=== PATIENT | female | born 1995 | race Caucasian/White ===

== ENCOUNTER 2021-06-02 20:53 | Emergency (ER) | payer OTHER ==
--- OUTSIDE RECORDS SUMMARY | 2021-06-02 20:56 | XMS REPORT | Continuity of Care Document ---
:1995 Author Organization [facility] t Address [address] [place] [address] Care Team Providers Name Role Phone Unavailable Unavailable Unavailable Problems This patient has no known problems. Allergies, Adverse Reactions, Alerts This patient has no known allergies or adverse reactions. Medications This patient has no known medications. Procedures This patient has no known procedures. Encounters Start End Encounter Admission Attending Care Care Encounter Source Date/Time Date/Time Type Type Clinicians Facility Department ID 2021-05-05 Outpatient [facility] [id number] [facility] [address] 14:38:48 [facility] 2021-05-20 2021-05-20 ambulatory [facility] [id number] [facility] [address] 00:00:00 00:00:00 [facility] 2021-04-30 2021-04-30 ambulatory [facility] [id number] [facility] [address] 00:00:00 00:00:00 [facility] Results Test Description Test Time Test Comments Results Result Comments Source THYROID II PROFILE (TU,T4,FTI,TSH) 2021-04-06 06:04:50 Test Item Value Reference Range Interpretation Comme nts T-UPTAKE (test code = 2817) 36.1 % 24.3-39.0 THYROX. BIND. CAPAC. (test 0.9 0.8-1.3 NOTE: THYROXINE code = 10206) BINDING CAPACI TY IS INVERSELY RELATED TO T-UP TAKE,DECREASED WITH HYPERTHYRO IDISM AND LOW THYROID BINDING GLOBULIN (TBG),INCREASED IN HYPOTHYROIDISM OR WITH HIGH TBG. T4 (THYROXINE) (test code = 7.3 UG/DL 4.5-10.5 2818) CORRECTED T4 (FTI) (test 8.1 UG/DL 4.2-11.6 code = 2820) TSH, THIRD GENERATION (test 1.300 UIU/ML 0.400-4.100 UNLESS OTHERWISE code = 2821) INDICATED, ALL TESTING PERFORMED [facility], [facility]. [address] [place] [address] LABORATORY DIRE CTOR: MARILIN LAWTON M.D. CLIA NUMBER [id number] CAP ACCREDITATION N O. [id number] COMPREHENSIVE METABOLIC [id number] 04:09:31 Test Item Value Reference Range Interpretation Comments GLUCOSE (test code = 137 MG/DL 70-99 H 2216) BUN (test code = 11 MG/DL 6-20 2207) CREATININE (test 0.74 MG/DL 0.60-1.30 EFFECTIVE code = 2214) 03/22/2021, [facility] HAS IMPLEMENTED THE NKF-ASN RECOMME NDED KD-EPI EGF R REFIT CALCULATI ON THAT DOES NOT INCLUDE A COEFFICIENT FOR RACE. FOR MORE INFORMATION, SE E ANNOUNCEMENT [email or web address] eGFR (2020 CKD-EPI) 116 >60 (test code = 19135) ML/MIN/1.73 CALC BUN/CREAT (test 15 RATIO 6-28 code = 2235) SODIUM (test code = 137 MEQ/L 394-208 5601) POTASSIUM (test code 4.9 MEQ/L 3.5-5.4 = 2228) CHLORIDE (test code 101 MEQ/L 95-107 = 2215) CARBON DIOXIDE (test 24 MEQ/L 19-31 code = 2206) CALCIUM (test code = 10.5 MG/DL 8.5-10.5 2208) PROTEIN, TOTAL (test 7.3 G/DL 6.1-8.3 code = 2229) ALBUMIN (test code = 4.7 G/DL 3.5-5.2 2200) CALC GLOBULIN (test 2.6 G/DL 1.9-3.7 code = 2240) CALC A/G RATIO (test 1.8 RATIO 1.0-2.6 code = 2234) BILIRUBIN, TOTAL 0.2 MG/DL See_Comment [Automated message] (test code = 2207) The syste m which generated this result transmit john reference range : <=1.2. The refe rence range was not u sed to interpret th is result as normal/abnormal . ALKALINE PHOSPHATASE 53 U/L 40-115 (test code = 2204) AST (test code = 21 U/L 9-40 2217) ALT (test code = 23 U/L 5-40 2218) LIPID [id number] 04:09:31 Test Item Value Reference Range Interpretation Comments CHOLESTEROL (test 245 MG/DL <200 H code = 2210) TRIGLYCERIDES (test 161 MG/DL <150 H code = 2232) HDL CHOLESTEROL (test 46 MG/DL >39 code = 2220) CALC LDL CHOL (test 168 MG/DL <100 H NOTE: C ALCULATED LDL code = 2237) IS BASED ON JORGE-SLOAN METHOD WHICHINCLUDES ADJUSTABLE TRIGLYCERIDE:VL DL CHOLESTEROL RAT IO.THIS FACTOR VARIES B Y MEASURED TRIGLY CERIDE AND NON-HDLCHOL ESTEROL CONCENTRATIONS WITH INCREASED CALCU LATED LDL SEENIN HIGH ER TRIGLYCERIDE OR LOWER NON-HDL SPECIME NS. FOR MOREINFORMATION , SEE CLIENT ANNOUNCE MENT AT [email or web address] RISK RATIO LDL/HDL 3.65 RATIO <3.22 H (test code = 2238) HEMOGLOBIN [id number] 02:50:34 Test Item Value Reference Range Interpretation Comments HEMOGLOBIN A1c (test 6.9 % 4.2-5.6 H YEMENI DIABETES code = 70877) ASSOCIATION IDELINES FOR HGB A1C: PREDIABETES/INC REASED RISK . . . . . . . 5.7 -6.4% DIAGNOSIS OF D IABETES . . . . . . . . . > =6.5% WITH CONFIRM ATION OR APPROPRIATE SYM PTOMS NOTE: ASSAY MAY BE AFFECTED BY HEMOGLOBINOP ATHIES (SICKLE KRISTI L ANEMIA, S-C DISEASE, OTHERS ) OR ARTIFICIALLY LO WERED BY DECREASED RED C ELL SURVIVAL (HEMOLYTIC ANEM IAS, BLOOD LOSS, ETC.) . CONSIDER ALTERNATE TESTI NG OR LABORATORY CONS ULTATION. CBC W/AUTO DIFF WITH [id number] 02:12:43 Test Item Value Reference Range Interpretation Comments WBC (test code = 10.6 K/UL 3.5-11.0 1001) RBC (test code = 4.79 M/UL 3.80-5.40 1002) HEMOGLOBIN (test code 13.8 G/DL 11.5-15.5 = 1003) HEMATOCRIT (test code 40.0 % 34.0-45.0 = 1004) MCV (test code = 83.5 fL 80.0-99.0 1005) MCH (test code = 28.8 PG 25.0-33.0 1006) MCHC (test code = 34.5 G/DL 31.0-36.0 1007) RDW (test code = 14.1 % 11.5-15.0 1038) NEUTROPHILS (test 62.3 % NOTE: EFF ECTIVE code = 1008) 03/01/2021, REFERENCE INTER VALS AND FLAGGING FORRELATIVE (%) WBC DIFFERENTIAL WI LL BE ELIMINATED REDUNDANT TOABS OLUTE COUNTS.SEE [email or web address] te LYMPHOCYTES (test 29.3 % code = 1010) MONOCYTES (test code 4.9 % = 1011) EOSINOPHILS (test 2.7 % code = 1012) BASOPHILS (test code 0.5 % = 1013) IMMATURE GRANYLOCYTES 0.3 % (test code = 1036) NUCLEATED RBCS (test 0.0 /100 See_Comment [Autom ated message] code = 1065) WBC'S The system [employer] generated this result transmit john reference range : 0.0. The refere nce range was not u sed to interpret th is result as normal/abnormal . PLATELET COUNT (test 342 K/UL 130-400 code = 1015) ABSOLUTE NEUTROPHILS 6.58 K/UL 1.50-7.50 (test code = 1066) ABSOLUTE LYMPHOCYTES 3.09 K/UL 1.00-4.00 (test code = 1067) ABSOLUTE MONOCYTES 0.52 K/UL 0.20-1.00 (test code = 1068) ABSOLUTE EOSINOPHILS 0.29 K/UL 0.00-0.50 (test code = 1040) ABSOLUTE BASOPHILS 0.05 K/UL 0.00-0.20 (test code = 1069) ABS IMMATURE 0.03 K/UL 0.00-0.10 GRANULOCYTES (test code = 1020) ABS NUCLEATED RBCS 0.00 K/UL 0.00-0.11 (test code = 15089)
[2021-06-02] MEDS ORDERED: ONDANSETRON 4 MG/2 ML VIAL ONE (21:58)
[2021-06-02] MEDS ORDERED: NA CHLORIDE 0.9% 1,000 ML ONE (21:58)
[2021-06-02] MEDS ORDERED: MORPHINE 4 MG/ML SYR ONE (21:58)
[2021-06-02 22:34] LABS: Absolute Lymphocytes (CBC) 2.8 K/uL (0.7-4.9); Hematocrit 36.6 % (36.0-45.0); Lymphocytes % 29.5 % (15.3-44.8); MPV 8.5 fL (7.6-11.3); RBC Red Blood Cell Count 4.19 M/uL (3.86-4.86)
[2021-06-02 22:38] LABS: BUN Blood Urea Nitrogen 7 mg/dL (7-18); Bicarbonate 27 mmol/L (21-32); Glucose Level 149 mg/dL (74-106); Sodium Level 138 mmol/L (136-145)
[2021-06-02 23:08] LABS: Urine RBC <5 /HPF (NONE SEEN)
[2021-06-02 23:09] LABS: Urine Bacteria <20 /HPF (<20)
[2021-06-02 23:09] LABS: Urine Blood Negative (Negative); Urine Glucose Negative (Negative); Urine Protein Trace (Negative)
[2021-06-03] MEDS ORDERED: MEPERIDINE HCL 25 MG/ML SYR ONE (00:15)
[2021-06-03] MEDS ORDERED: dexAMETHasone 4 MG/ML VIAL ONE (00:15)
--- NOTE | 2021-06-03 00:50 | EDPHYS ---
Physician Documentation [facility] Name: Monie Bacon Age: 25 yrs Sex: Female : 1995 Arrival Date: 06/02/2021 Time: 20:56 Bed 8 Private MD: ED Physician Yfn Pires HPI: 06/02 22:36 This 25 yrs old Female presents to ER via Ambulatory with complaints of Headache, Neck rn Pain, >24Hrs Old. 22:36 The patient complains of pain to the forehead. The patient describes the headache as rn aching. Onset: The symptoms/episode began/occurred yesterday. Associated signs and symptoms: Pertinent negatives: altered mental status, fever, neck stiffness, rash, vision changes, vision loss, vomiting, vertigo. Severity of symptoms: At its worst the pain was moderate, in the emergency department the pain is unchanged. Headache History: Denies prior headaches. The symptoms are alleviated by nothing. the symptoms are aggravated by nothing. The patient has not experienced similar symptoms in the past. The patient has not recently seen a physician. Pt reports headache that began last night, no trauma, no fever, no focal neuro complaints. Reports has von Willebrand disease but has never had serious bleeding. Denies hx of headaches, so when excedrin migraine not helping, it prompted her to come in for eval. Reports also that recently had issues obtaining her prescription medication and has not taken her medications regularly for last few days. Also reports chronically elevated HR, takes propranolol for it and also has not been taking it as prescribed. . ANIMAL COP: 21:14 LMP N/A - Irregular menses ll3 Historical: - Allergies: 21:14 topiramate; ll3 - Home Meds: 21:14 metformin 1,000 mg oral tab 2 times per day [Active]; lithium carbonate 450 mg Oral ll3 TbER 2 times per day [Active]; BuSpar 15 mg Oral tab 2 times per day [Active]; amiloride-hydrochlorothiazide 200 mg oral tab nightly [Active]; valsartan 80 mg oral tab once daily [Active]; propranolol-hydrochlorothiazide 10 mg oral three times a day [Active]; pregabalin 300 mg Oral cap 2 times per day [Active]; - PMHx: 21:14 vonwildbrandt clotting disorder; Rheumatoid arthritis; PCOS; Bipolar disorder; ADHD; ll3 Hypertensive disorder; Diabetes mellitus; Hypercholesterolemia; - PSHx: 21:14 None; ll3 - Immunization history:: Client reports receiving the 2nd dose of the Covid vaccine. - Social history:: Smoking status: Patient denies any tobacco usage or history of. - Family history:: not pertinent. - Hospitalizations: : No recent hospitalization is reported. ROS: 22:36 Constitutional: Negative for fever, chills, and weight loss, Eyes: Negative for injury, rn pain, redness, and discharge, Neck: Negative for injury, and swelling, Cardiovascular: Negative for chest pain, palpitations, and edema, Respiratory: Negative for shortness of breath, cough, wheezing, and pleuritic chest pain, Abdomen/GI: Negative for abdominal pain, vomiting, diarrhea, and constipation, Back: Negative for injury and pain, : Negative for injury, bleeding, discharge, and swelling, MS/Extremity: Negative for injury and deformity, Skin: Negative for injury, rash, and discoloration, Neuro: Negative for numbness, tingling, and seizure. Exam: 22:36 Constitutional: Overweight female, no acute distress. Head/Face: Normocephalic, rn atraumatic. Eyes: Pupils equal round and reactive to light, extra-ocular motions intact. Lids and lashes normal. Conjunctiva and sclera are non-icteric and not injected. Cornea within normal limits. Periorbital areas with no swelling, redness, or edema. Neck: Trachea midline, no masses palpated, and no cervical lymphadenopathy. Supple, full range of motion without nuchal rigidity, or vertebral point tenderness. No Meningismus. Cardiovascular: Regular rate and rhythm. No pulse deficits. Respiratory: No increased work of breathing, no retractions or nasal flaring. Abdomen/GI: Soft, non-tender Skin: Warm, dry MS/ Extremity: Pulses equal, no cyanosis. Neuro: Awake and alert, GCS 15, oriented to person, place, time, and situation. Cranial nerves II-XII grossly intact. Motor strength 5/5 in all extremities. Sensory grossly intact. Cerebellar exam normal. Vital Signs: 21:08 BP 153 / 97; Pulse 106; Resp 18; Temp 98.2(TE); Pulse Ox 99% on R/A; Weight 151.95 kg ll3 (R); Height 5 ft. 3 in. (160.02 cm) (R); Pain 8/10; 21:43 BP 147 / 109; Pulse 111; Resp 16; Pulse Ox 99% on R/A; st1 22:00 BP 139 / 77; Pulse 95; Resp 16; Pulse Ox 96% on R/A; st1 06/03 00:14 BP 151 / 90; Pulse 103; Resp 22 S; Pulse Ox 97% on R/A; as6 00:57 BP 148 / 83; Pulse 99; Resp 20 S; Pulse Ox 97% on R/A; as6 06/02 21:08 Body Mass Index 59.34 (151.95 kg, 160.02 cm) ll3 Dixie Coma Score: 00:01 Eye Response: spontaneous(4). Verbal Response: oriented(5). Motor Response: obeys rn commands(6). Total: 15. MDM: 06/02 21:30 Patient medically screened. rn 06/03 00:01 Differential diagnosis: cluster headache, hypertensive headache, intracerebral rn hemorrhage, migraine, neoplasm, tension headache, vasomotor headache. Data reviewed: vital signs, nurses notes, lab test result(s), radiologic studies, CT scan, and as a result, I will discharge patient. Counseling: I had a detailed discussion with the patient and/or guardian regarding: the historical points, exam findings, and any diagnostic results supporting the discharge/admit diagnosis, lab results, radiology results, the need for outpatient follow up, to return to the emergency department if symptoms worsen or persist or if there are any questions or concerns that arise at home. Special discussion: I discussed with the patient/guardian in detail that at this point there is no indication for admission to the hospital. It is understood, however, that if the symptoms persist or worsen the patient needs to return immediately for re-evaluation. Based on the history and exam findings, there is no indication for further emergent testing or inpatient evaluation. I discussed with the patient/guardian the need to see the neurologist for further evaluation of the symptoms. I discussed with the patient/guardian the need to see the primary care provider for further evaluation of the symptoms. ED course: CT head and neck angio neg for acute findings. No bleeding. Stable vitals. Patient states improvement of pain level to 6/10 from 8/10. Will medicate again with pain medication and add steroids for migraine headache. Could be originating from neck/nerve given happened after carrying heavy object. . 06/02 21:44 Order name: CBC with Diff; Complete Time: 22:54 rn 06/02 21:44 Order name: Basic Metabolic Panel; Complete Time: 22:54 rn 06/02 21:44 Order name: Urine Microscopic Only; Complete Time: 23:09 rn 06/02 23:09 Order name: Urine Culture EDMS 06/02 23:10 Order name: Urine Dipstick-Ancillary; Complete Time: 23:49 EDMS 06/02 23:11 Order name: Urine --Ancillary (enter results) mw2 06/02 21:32 Order name: CT Head Brain wo Cont rn 06/02 21:32 Order name: CT Head Angio rn 06/02 21:32 Order name: CT Neck Angio rn 06/02 23:12 Order name: Urine --Ancillary; Complete Time: 23:49 EDMS 06/02 21:44 Order name: IV Start; Complete Time: 22:03 rn 06/02 21:44 Order name: Urine Dipstick-Ancillary (obtain specimen); Complete Time: 22:43 rn 06/02 21:44 Order name: Urine Test (obtain specimen); Complete Time: 22:43 rn Administered Medications: 06/02 22:03 Drug: morphine 4 mg Route: IVP; Site: right antecubital; 06/03 00:56 Follow up: Response: No adverse reaction; RASS: Alert and Calm (0) as06/02 22:03 Drug: Zofran (Ondansetron) 4 mg Route: IVP; Site: right antecubital; 06/03 00:56 Follow up: Response: No adverse reaction 06/02 22:04 Drug: NS 0.9% 1000 ml Route: IV; Rate: 1000 ml; Site: right antecubital; 06/03 00:56 Follow up: Response: No adverse reaction; IV Status: Completed infusion; IV Intake: as6 1000ml 00:18 Drug: Decadron - Dexamethasone 10 mg Route: IVP; Site: right antecubital; as6 00:56 Follow up: Response: No adverse reaction as 00:18 Drug: Demerol (meperidine) 12.5 mg Route: IVP; Site: right antecubital; as6 00:57 Follow up: Response: No adverse reaction; RASS: Alert and Calm (0) as6 Disposition Summary: 06/03/21 00:49 Discharge Ordered Location: Home rn Problem: new rn Symptoms: have improved rn Condition: Stable rn Diagnosis - Headache rn Followup: rn - With: Stewart Vergara MD - When: As needed - Reason: Recheck today's complaints, Re-evaluation by your physician Discharge Instructions: - Discharge Summary Sheet rn - General Headache Without Cause rn Forms: - Medication Reconciliation Form rn - Thank You Letter rn - Antibiotic music internship - Prescription Opioid Use rn Prescriptions: - Medrol (Miguelito) 4 mg Oral Tablets, Dose Pack - take 1 tablet by ORAL route as directed - follow package instructions; 1 rn packet; Refills: 0, Product Selection Permitted Signatures: Dispatcher [employer] Yfn Mera MD MD rn Slawson, Ashby, RN RN as6 Rehana Eisenberg, RN RN ll3 Krystal Martinez, RN RN st1
--- NOTE | 2021-06-03 00:50 | ER ---
Nurse's Notes [facility] Name: Monie Bacon Age: 25 yrs Sex: Female : 1995 Arrival Date: 06/02/2021 Time: 20:56 Bed 8 Private MD: Diagnosis: Headache Presentation: 06/02 21:08 Chief complaint: Patient states: States having a horrible H/A and neck pain, Stated ll3 neck pain started a few days ago after carrying a 5 gallon jug of water and the H/A started around 11 PM last night. Coronavirus screen: At this time, the client does not indicate any symptoms associated with coronavirus-19. Ebola Screen: No symptoms or risks identified at this time. Initial Sepsis Screen: Does the patient meet any 2 criteria? No. Patient's initial sepsis screen is negative. Does the patient have a suspected source of infection? No. Patient's initial sepsis screen is negative. Risk Assessment: Do you want to hurt yourself or someone else? Patient reports no desire to harm self or others. Onset of symptoms was June 01, 2021. 21:08 Method Of Arrival: Ambulatory ll3 21:08 Acuity: MARIA 3 ll3 Triage Assessment: 21:14 Headache History: Denies prior headaches. General: Appears uncomfortable, Behavior is ll3 calm, cooperative. Pain: Complains of pain in right sternocleidomastoid, H/A Pain currently is 8 out of 10 on a pain scale. Pain: Pain began 1 day ago. Also complains of nausea, sleeplessness. Neuro: Level of Consciousness is awake, alert, obeys commands, Oriented to person, place, time, situation, Reports headache occipital area, that is the "worst ever", Right eye. Respiratory: Respiratory effort is even, unlabored, Respiratory pattern is regular, symmetrical. Derm: Skin is pink, warm \\T\\ dry. 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 LMP N/A - Irregular menses ll3 Historical: - Allergies: 21:14 topiramate; ll3 - Home Meds: 21:14 metformin 1,000 mg oral tab 2 times per day [Active]; lithium carbonate 450 mg Oral ll3 TbER 2 times per day [Active]; BuSpar 15 mg Oral tab 2 times per day [Active]; amiloride-hydrochlorothiazide 200 mg oral tab nightly [Active]; valsartan 80 mg oral tab once daily [Active]; propranolol-hydrochlorothiazide 10 mg oral three times a day [Active]; pregabalin 300 mg Oral cap 2 times per day [Active]; - PMHx: 21:14 vonwildbrandt clotting disorder; Rheumatoid arthritis; PCOS; Bipolar disorder; ADHD; ll3 Hypertensive disorder; Diabetes mellitus; Hypercholesterolemia; - PSHx: 21:14 None; ll3 - Immunization history:: Client reports receiving the 2nd dose of the Covid vaccine. - Social history:: Smoking status: Patient denies any tobacco usage or history of. - Family history:: not pertinent. - Hospitalizations: : No recent hospitalization is reported. Screenin:36 Abuse screen: Denies threats or abuse. Nutritional screening: No deficits noted. st1 Tuberculosis screening: No symptoms or risk factors identified. Fall Risk None identified. No fall in past 12 months (0 pts). No secondary diagnosis (0 pts). IV access (20 points). Ambulatory Aid- None/Bed Rest/Nurse Assist (0 pts). Gait- Normal/Bed Rest/Wheelchair (0 pts) Mental Status- Oriented to own ability (0 pts). Total Lou Fall Scale indicates No Risk (0-24 pts). Assessment: 21:44 General: Appears in no apparent distress. comfortable, Behavior is calm, cooperative. st1 Pain: Complains of pain in Head and neck Pain radiates to Neck Pain currently is 9 out of 10 on a pain scale. Respiratory: No deficits noted. Musculoskeletal: No deficits noted. 06/03 00:14 Pain: Pain currently is 6 out of 10 on a pain scale. as6 Vital Signs: 06/02 21:08 BP 153 / 97; Pulse 106; Resp 18; Temp 98.2(TE); Pulse Ox 99% on R/A; Weight 151.95 kg ll3 (R); Height 5 ft. 3 in. (160.02 cm) (R); Pain 8/10; 21:43 BP 147 / 109; Pulse 111; Resp 16; Pulse Ox 99% on R/A; st1 22:00 BP 139 / 77; Pulse 95; Resp 16; Pulse Ox 96% on R/A; st1 06/03 00:14 BP 151 / 90; Pulse 103; Resp 22 S; Pulse Ox 97% on R/A; as6 00:57 BP 148 / 83; Pulse 99; Resp 20 S; Pulse Ox 97% on R/A; as6 06/02 21:08 Body Mass Index 59.34 (151.95 kg, 160.02 cm) ll3 Da Coma Score: 00:01 Eye Response: spontaneous(4). Verbal Response: oriented(5). Motor Response: obeys rn commands(6). Total: 15. ED Course: 06/02 20:56 Patient arrived in ED. es 21:14 Triage completed. ll3 21:14 Arm band placed on left wrist. ll3 21:30 Yfn Pires MD is Attending Physician. rn 21:44 Patient has correct armband on for positive identification. Bed in low position. Call st1 light in reach. Side rails up X 1. Adult w/ patient. Pulse ox on. NIBP on. Verbal reassurance given. 21:52 Waldo Lorenzo, ZULMA is Primary Nurse. as6 22:00 Inserted saline lock: 20 gauge in right antecubital area, using aseptic technique. st1 22:03 Basic Metabolic Panel Sent. st1 22:03 CBC with Diff Sent. st1 22:43 Urine Microscopic Only Sent. st1 23:13 CT Head Brain wo Cont In Process Unspecified. EDMS 23:13 CT Head Angio In Process Unspecified. EDMS 23:13 CT Neck Angio In Process Unspecified. EDMS 06/03 00:49 Stewart Vergara MD is Referral Physician. rn 00:50 Urine --Ancillary (enter results) Sent. st1 00:50 Urine Culture Sent. st1 00:55 No provider procedures requiring assistance completed. as6 00:55 No provider procedures requiring assistance completed. IV discontinued, intact, st1 bleeding controlled, No redness/swelling at site. Pressure dressing applied. Administered Medications: 06/02 22:03 Drug: morphine 4 mg Route: IVP; Site: right antecubital; st1 06/03 00:56 Follow up: Response: No adverse reaction; RASS: Alert and Calm (0) as6 06/02 22:03 Drug: Zofran (Ondansetron) 4 mg Route: IVP; Site: right antecubital; st1 06/03 00:56 Follow up: Response: No adverse reaction as6 06/02 22:04 Drug: NS 0.9% 1000 ml Route: IV; Rate: 1000 ml; Site: right antecubital; st1 06/03 00:56 Follow up: Response: No adverse reaction; IV Status: Completed infusion; IV Intake: as6 1000ml 00:18 Drug: Decadron - Dexamethasone 10 mg Route: IVP; Site: right antecubital; as6 00:56 Follow up: Response: No adverse reaction as6 00:18 Drug: Demerol (meperidine) 12.5 mg Route: IVP; Site: right antecubital; as6 00:57 Follow up: Response: No adverse reaction; RASS: Alert and Calm (0) as6 Intake: 00:56 IV: 1000ml; Total: 1000ml. as6 Outcome: 00:49 Discharge ordered by . rn 00:56 Discharged to home ambulatory, with family. st1 00:56 Condition: good 00:56 Discharge instructions given to patient, family, Instructed on discharge instructions, follow up and referral plans. medication usage, Demonstrated understanding of instructions, follow-up care, medications, Prescriptions given X 1. 01:00 Patient left the ED. as6 Addendum: 06/06/2021 17:21 Addendum: Culture Results: Positive urine culture. Patient was not prescribed s s antibiotics at discharge. Report given to YAMILE for further evaluation and then to nurse practitioner adult for follow up with patient. Phone call Attempt #1 Pt states she has no S/S of UTI. Signatures: Dispatcher [employer] Jessica Dorado Roman, MD MD rn Smirch, Shelby, RN RN Waldo Lorenzo RN RN as6 Rehana Eisenberg RN RN ll3 Krystal Martinez RN RN st1
[2021-06-03 02:48] VITALS: TEMP 98.2
[2021-06-03 03:02] VITALS: O2SAT 97
[2021-06-03 03:04] VITALS: BP 148/83
--- NOTE | 2021-06-03 13:16 | RAD REPORT ---
EXAM DESCRIPTION: CT - Head Brain Wo Cont - 06/03/2021 6:49 am CLINICAL HISTORY: HEADACHE. TECHNIQUE: Noncontrast CT through the head was performed. Axial, coronal, and sagittal reconstructio ns were created and sent to PACS. This exam was performed according to our departmental dose-optimiza tion program which includes use of Automated Exposure Control, adjustment of the mA and/or kV accordi ng to patient size and/or use of iterative reconstruction technique. COMPARISON: None. FINDINGS: The brain parenchyma appears unremarkable. There is no intra-axial or extra-axial bleed se en. There is no mass or mass effect. The ventricles are unremarkable. The orbital contents appear unr emarkable. The visualized paranasal sinuses and mastoid air cells are patent. No acute fracture is identified. IMPRESSION: No acute intracranial abnormality identified. Electronically signed by: Marlene Cox MD 06/02/2021 11:25 PM NET MANAGER Due to temporary technical issues with the PACS/Fluency reporting system, reports are being signed by the in house radiologists without review as a courtesy to insure prompt reporting. The interpreting radiologist is fully responsible for the content of the report.
--- NOTE | 2021-06-03 13:52 | RAD REPORT ---
EXAM DESCRIPTION: CT - Head angio - 06/03/2021 6:49 am CLINICAL HISTORY: Headache COMPARISON: CT Head/Brain Without Contrast 06/02/2021 at 10:53 PM TECHNIQUE: Head CTA axial images acquired after mL Isovue 370 IV contrast. Coronal and sagittal CT A MIPs and MPRs created. 3D volume rendered images created. Exam performed according to departmental dose-optimization program which includes automated exposure control, adjustment of mA and/or kV accor ding to patient size, and/or use of iterative reconstruction technique. FINDINGS: Both intracranial vertebral, basilar, and both posterior cerebral arteries unremarkable. Both intracranial internal carotid, both middle cerebral, anterior communicating, and both anterior c erebral arteries unremarkable. No evidence of large intracranial arterial occlusion, aneurysm, or AVM. IMPRESSION: Unremarkable CTA Head. Electronically signed by: Khari Vee MD 06/02/2021 11:38 PM OUTREACH REP Due to temporary technical issues with the PACS/Fluency reporting system, reports are being signed by the in house radiologists without review as a courtesy to insure prompt reporting. The interpreting radiologist is fully responsible for the content of the report.
--- NOTE | 2021-06-03 14:05 | RAD REPORT ---
EXAM DESCRIPTION: CT - Neck Angio - 06/03/2021 6:48 am CLINICAL HISTORY: Headache, neck pain, clotting disorder COMPARISON: None Available. TECHNIQUE: Multiple helical axial tomographic images were obtained of the neck following administrat ion of intravenous contrast per angiographic protocol. MIP reformatted images were obtained. This exa m was performed according to our departmental dose-optimization program, which includes automated exp osure control, adjustment of the mA and/or kV according to patient size and/or use of iterative recon struction technique. FINDINGS: Aortic arch is not imaged. Imaged carotid and vertebral arterial vasculature of the neck appears patent without significant sten osis or occlusion. Thyroid gland appears unremarkable. Salivary glands appear unremarkable. No evidence of adenopathy. R etropharyngeal space appears normal. Epiglottis appears normal. Larynx and vocal folds appear unremar kable. Visualized lungs are clear. Osseous structures are unremarkable. IMPRESSION: No evidence of significant arterial stenosis or occlusion within the neck. Electronically signed by: Javi Barnes MD 06/02/2021 11:50 PM [employer] Due to temporary technical issues with the PACS/Fluency reporting system, reports are being signed by the in house radiologists without review as a courtesy to insure prompt reporting. The interpreting radiologist is fully responsible for the content of the report.
== END 2021-06-03 01:00 | disposition home or self-care (01) ==
LOC: ER 20:53
DX: R51.9 Headache, unspecified (principal)
CPT/HCPCS: 96361; 87088; 85025; 87086; 80048; 36415; 81025; 87077; 87186; 70450; 70496; 70498; 96375; 96374; 99284; Q9967; J1100; J2175; J7030; J2405; 81003; 81015